=== PATIENT | female | born 1995 | race Caucasian/White ===

== ENCOUNTER 2023-07-16 10:16 | Day surgery (SDC) | payer OTHER ==
--- NOTE | 2023-07-15 20:48 | P.HPOR ---
History of Present Illness H&P Date: 07/15/23 Subjective: This is a 28 year old female that presents today for initial evaluation regarding a right wrist injury that occurred on 07/12/2023 when she was snowboarding at [facility] and fell onto an outstretched hand. She had immediate pain and felt a crack in the wrist. She was seen at [facility] where she was placed in a sugar tong splint. She denies any numbness or tingling. She has pain with any type of movement of the wrist or fingers. 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 Physical Examination: RUE: AIN/PIN/Radial/Ulnar/Median motor intact. Radial/Ulnar/Median SILT. 2+/4 Radial/Ulnar pulses palpated. 5/5 APB, 5/5 FDI. TTP over dorsal distal radius with bruising/swelling present. Imaging: X-Rays of the right wrist 3V taken in office today demonstrates a right distal radius fracture with 10% dorsal displacement and 15 degrees of dorsal angulation. Impression: 1.) Right distal radius fracture, displaced. Plan: Diagnosis and treatment options were discussed with the patient. Due to the amount of displacement and patients age and activity demands I recommend surgical intervention. She is scheduled for a right distal radius fracture ORIF. Risks and benefits of surgery including bleeding, infection, damage to surrounding tissue, need for further surgery, residual numbness were discussed and the patient wished to go forward with surgery. She is placed in a wrist brace which she may keep on and is to rest, ice and elevate. The patient was agreeable with this plan of action. CC: Dr. Wilver Wong DO Orthopedic Hand/Upper Extremity Surgeon Physical Examination Osteopathic Statement: *. No significant issues noted on an osteopathic structural exam other than those noted in the History and Physical/Consult.
[2023-07-16] MEDS ORDERED: ONDANSETRON 4 MG/2 ML VIAL ONE (10:19)
[2023-07-16] MEDS ORDERED: ONDANSETRON 4 MG/2 ML VIAL IVP ONE (10:51)
[2023-07-16] MEDS ORDERED: LACTATED RINGERS 1,000 ML IV ONE (10:51)
[2023-07-16] MEDS ORDERED: DEXAMETHASONE SOD PHOSPHATE 4 MG/ML 1 ML VIAL IVP ONE (10:51)
[2023-07-16] MEDS ORDERED: MIDAZOLAM 2 MG/2 ML VIAL IVP ONE (11:22)
[2023-07-16] MEDS ORDERED: DEXAMETHASONE SOD PHOSPHATE 4 MG/ML 1 ML VIAL ONE (12:13)
[2023-07-16] MEDS ORDERED: fentaNYL (PF) 50 MCG/ML 2 ML AMP ONE (12:13)
[2023-07-16] MEDS ORDERED: PHENYLEPHRINE 10 MG/ML VIAL ONE (12:13)
[2023-07-16] MEDS ORDERED: MIDAZOLAM 2 MG/2 ML VIAL ONE (12:13)
[2023-07-16] MEDS ORDERED: PROPOFOL 10 MG/ML 20 ML VIAL IV ONE (12:13)
[2023-07-16] MEDS ORDERED: ROPIVACAINE 5 MG/ML 30 ML VIAL ONE (12:13)
[2023-07-16] MEDS ORDERED: LIDOCAINE 1% INJ 10MG/ML (20 ML MDV) ONE (12:13)
[2023-07-16] MEDS ORDERED: SODIUM CHLORIDE 0.9% 100 ML with ceFAZolin 2,000 MG IV ONE ×2 (12:30)
[2023-07-16] MEDS ORDERED: SODIUM CHLORIDE 0.9% 100 ML BAG ONE (12:50)
[2023-07-16] MEDS ORDERED: ceFAZolin 1,000 MG VIAL ONE (12:50)
--- NOTE | 2023-07-16 13:31 | P.OP ---
Date of Procedure: 07/16/23 Preoperative Diagnosis: Right distal radius fracture Postoperative Diagnosis: Right distal radius fracture Procedure(s) Performed: Open reduction internal fixation of right distal radius fracture, 3 part. Implants: Mega volar distal radius plate Anesthesia: regional Surgeon: Peewee Wong Travel Writer #1: Mk Hdz Estimated Blood Loss (ml): 0 Pathology: none sent Condition: stable Disposition: PACU Description of Procedure: This is a 28 year old female who sustained a displaced intra-articular distal radius fracture and presents today for open reduction internal fixation of their right distal radius fracture. Risks and benefits of surgery were discussed with the patient including bleeding, damage to surrounding tissue, infection, need for further surgery as well as risks of anesthesia including pulmonary embolism and even and the patient wished to proceed with surgical intervention. The patients was seen in the pre-operative area by myself. Consent and H&P were completed and updated. The correct extremity was marked in the pre-operative area by myself and all other questions were answered. Operative Narrative: The patient was brought to the operating room by the department of anesthesia. They remained on the portable stretcher and a rolling hand table was brought to the side of the operative extremity. Pre-operative time out was performed indicating the correct patient, procedure and laterality. All in the room agreed. Pre-operative antibiotics were given prior to skin incision. The patient was then drifted off to sleep by the department of anesthesia. A nonsterile tourniquet was then applied to the operative extremity and the right upper extremity was then prepped and draped in normal sterile fashion. The operative extremity was the exsanguinated with an esmarch bandage and the tourniquet was inflated to 250mmHg. A longitudinal incision centered over the FCR tendon was made with a 15-blade scalpel. Blunt dissection was taken down to the FCR tendon sheath using Bovie cautery for meticulous hemostasis. The FCR sheath was opened with tenotomy scissors. The floor of the FCR sheath was then incised with a 15-blade scalpel and the FPL tendon and muscle belly was swept bluntly in an ulnar direction to reveal the pronator quadratus. Pronator quadratus was sharply incised with a 15-blade scalpel along the radial border of the distal radius, coming across transversely parallel to the joint at the level of the watershed line, radial artery was identified and protected. Periosteal elevator was then used to elevate the pronator quadratus off the distal radius from a radial to ulnar fashion. A [place] elevator was used to lever the distal piece back into place and free up the fractured fragments. A standard width 3 hole [place] V[employer]x 2 titanium volar locking distal radius plate was chosen to fit the patients anatomy best. This was placed on the distal radius under direct visualization and the oblong hole was drilled and filled with a non-locking screw. The fracture was then reduced to the plate distally and a k-wire was placed in the ulnar most k-wire hole in the proximal row. Fluoroscopy was then utilized to confirm correct placement of plate in the radial/ulnar plane and distal k-wire placement was confirmed to be proximal to the subchondral bone on 20 degree elevated lateral view confirming extra-articular screw placement. Druze of radial height, inclination and volar tilt was achieved. The distal rows and radial styloid screw holes were then drilled and filled from ulnar to radial with locking screws. Attention was then brought to the proximal shaft screws. Proximal nonlocking and locking shaft screws were drilled, measured, and filled. The wrist joint was the ranged and full smooth flexion/extension with no crepit us appreciated. Final imaging was taken confirming extra-articular placement of distal screws at DRUJ and radiocarpal joint. The wound was then irrigated. Subcutaneous closure was performed with 4-0 monocryl suture. Sterile dressing consisting of steri strips, 4x4s, and a volar plaster splint was applied. Tourniquet was let down and the hand had immediate perfusion. The patient was then woken by the department of anesthesia and transferred to PACU in stable condition. Mk COOPER was present for the case and assisted in major portions of the operation and hardware placement. Peewee Wong D.O. Orthopedic Hand/Upper Extremity Surgeon
[2023-07-16 14:14] VITALS: TEMP 97.6
[2023-07-16 14:39] VITALS: RESP 14
[2023-07-16 15:03] VITALS: BP 104/67; PULSE 84
--- NOTE | 2023-07-17 20:35 | P.ANPRN ---
Procedure Note - Anesthesia - Nerve Block Performed Right Supraclavicular Single Time Out Performed: Yes Date of Procedure: 07/16/23 Procedure Start Time: : Procedure Stop Time: Location of Patient: PreOp Indication: Acute Post-Operative Pain, Requested by Surgeon Sedation Type: Sedate with meaningful contact maintained Preparation: Sterile Prep Position: Supine Needle Types: Pajunk Needle Gauge: 21 Ultrasound used to visualize needle placement: Yes Ultrasound used to observe medication spread: Yes Blood Aspirated: No Pain Paresthesia on Injection Noted: No Resistance on Injection: Normal Image Stored and Saved: Yes Events: Uneventful and Well Tolerated (Ropivacaine 0.5% 20 mL plus dexamethasone 4 minute)
== END 2023-07-16 15:13 | disposition home or self-care (01) ==
LOC: OR 10:16
PROVIDERS: ATTEND Orthopaedic Surgery Hand Surgery
DX: S52.501A Unspecified fracture of the lower end of right radius, initial encounter for closed fracture (principal); G89.18 Other acute postprocedural pain; Z88.2 Allergy status to sulfonamides; Z88.6 Allergy status to analgesic agent; X58.XXXA Exposure to other specified factors, initial encounter; Y93.23 Activity, snow (alpine) (downhill) skiing, snowboarding, sledding, tobogganing and snow tubing
CPT/HCPCS: 81025; 64415; 25609; C1713; J2250; J1100; J2405; J0690; J2001; J3010; J2795; J2704; J2371